=== PATIENT | male | born 1965 | race Caucasian/White ===

== ENCOUNTER 2020-10-07 20:41 | Emergency (ER) | payer OTHER ==
[2020-10-07 20:57] VITALS: BP 130/81; PULSE 86; RESP 18
[2020-10-07 20:58] VITALS: TEMP 100.2
[2020-10-07] MEDS ORDERED: ACETAMINOPHEN TAB 500 MG TAB PO STA (21:06)
[2020-10-07] MEDS ORDERED: SODIUM CHLORIDE 0.9% 1,000 ML IV STA (21:06)
--- NOTE | 2020-10-07 21:13 | ED ---
General Adult HPI - General Chief complaint: Upper Respiratory Infection Stated complaint: Fever, Covid exposure Time Seen by Provider: 10/07/20 20:50 Source: patient Mode of arrival: EMS Limitations: no limitations - History of Present Illness Initial comments: 55-year-old male without any significant past medical history presents to the emergency room for a chief complaint of not feeling well. Patient reports that he was exposed to his who has Covid. He reports that for the past 9 days he has had cough, fevers on and off, weakness, body aches. He has not been eating or drinking. He reports he can does not feel better. He denies shortne ss of breath or chest pain.Patient has no other complaints at this time including shortness of breath, chest pain, abdominal pain, nausea or vomiting, headache, or visual changes. - Related Data Home Medications Medication Instructions Recorded Confirmed Ascorbic Acid [Vitamin C] 500 mg PO DAILY 10/07/20 10/07/20 Cholecalciferol [Vitamin D3 (25 25 mcg PO DAILY 10/07/20 10/07/20 Mcg = 1000 Iu)] Vitamin A [Vitamin A (8,000 Units 2,400 mcg PO DAILY 10/07/20 10/07/20 = 2,400 MCG)] Zinc 50 mg PO DAILY 10/07/20 10/07/20 Allergies Allergy/AdvReac Type Severity Reaction Status Date / Time ibuprofen [From Motrin] AdvReac Unknown Verified 10/07/20 21:08 Review of Systems ROS Statement: Those systems with pertinent positive or pertinent negative responses have been documented in the HPI. ROS Other: All systems not noted in ROS Statement are negative. Past Medical History Past Medical History: No Reported History History of Any Multi-Drug Resistant Organisms: None Reported Additional Past Surgical History / Comment(s): knee surgery Past Psychological History: No Psychological Hx Reported Smoking Status: Never smoker Past Alcohol Use History: Occasional Past Drug Use History: None Reported General Exam Limitations: no limitations General appearance: alert, in no apparent distress Head exam: Present: atraumatic, normocephalic, normal inspection Eye exam: Present: normal appearance, PERRL, EOMI. Absent: scleral icterus, conjunctival injection, periorbital swelling ENT exam: Present: normal exam, mucous membranes moist Neck exam: Present: normal inspection, full ROM. Absent: tenderness, meningismus, lymphadenopathy Respiratory exam: Present: normal lung sounds bilaterally. Absent: respiratory distress, wheezes, rales, rhonchi, stridor Cardiovascular Exam: Present: regular rate, normal rhythm, normal heart sounds. Absent: systolic murmur, diastolic murmur, rubs, gallop, clicks GI/Abdominal exam: Present: soft, normal bowel sounds. Absent: distended, tenderness, guarding, rebound, rigid Course Vital Signs 10/07/20 10/07/20 20:45 20:57 Temperature 100.2 F H Pulse Rate 86 Respiratory 18 Rate Blood Pressure 130/81 O2 Sat by Pulse 95 Oximetry Medical Decision Making - Medical Decision Making Vitals are stable. CBC CMP unremarkable. Chest x-ray shows no acute process. At this time patient does qualify for antibody infusion which was discussed with him. He is agreeable. He will return to the emergency room for any worsening symptoms. - Lab Data Result diagrams: 10/07/20 21:12 10/07/20 21:12 Lab Results 10/07/20 10/07/20 10/07/20 Range/Units 21:12 21:12 21:12 WBC 4.7 (3.8-10.6) k/uL RBC 5.31 (4.30-5.90) m/uL Hgb 16.8 (13.0-17.5) gm/dL Hct 48.2 (39.0-53.0) % MCV 90.8 (80.0-100.0) fL MCH 31.7 (25.0-35.0) pg MCHC 34.9 (31.0-37.0) g/dL RDW 12.2 (11.5-15.5) % Plt Count 272 (150-450) k/uL MPV 7.1 Neutrophils % 76 % Lymphocytes % 15 % Monocytes % 7 % Eosinophils % 0 % Basophils % 0 % Neutrophils # 3.5 (1.3-7.7) k/uL Lymphocytes # 0.7 L (1.0-4.8) k/uL Monocytes # 0.3 (0-1.0) k/uL Eosinophils # 0.0 (0-0.7) k/uL Basophils # 0.0 (0-0.2) k/uL Sodium 131 L (137-145) mmol/L Potassium 3.8 (3.5-5.1) mmol/L Chloride 98 (98-107) mmol/L Carbon Dioxide 23 (22-30) mmol/L Anion Gap 10 mmol/L BUN 15 (9-20) mg/dL Creatinine 0.70 (0.66-1.25) mg/dL Est GFR (CKD-EPI)AfAm >90 (>60 ml/min/1.73 sqM) Est GFR (CKD-EPI)NonAf >90 (>60 ml/min/1.73 sqM) Glucose 129 H (74-99) mg/dL Calcium 8.8 (8.4-10.2) mg/dL Total Bilirubin 0.6 (0.2-1.3) mg/dL AST 53 (17-59) U/L ALT 52 H (4-49) U/L Alkaline Phosphatase 89 (38-126) U/L Total Protein 6.7 (6.3-8.2) g/dL Albumin 3.7 (3.5-5.0) g/dL Coronavirus (PCR) Detected A (Not Detectd) Disposition Clinical Impression: COVID-19 Disposition: HOME SELF-CARE Condition: Good Instructions (If sedation given, give patient instructions): Coronavirus Disease 2019 (COVID-19) Additional Instructions: Please follow up with primary care in 1-2 days. Return to the ER for any worsening symptoms. Is patient prescribed a controlled substance at d/c from ED?: No Referrals: Dario Ho DO [Primary Care Provider] - 1-2 days Time of Disposition: 22:21
[2020-10-07 21:19] LABS: Basophils % (A) 0 %; Eosinophils % (A) 0 %; HCT 48.2 % (39.0-53.0); HGB 16.8 gm/dL (13.0-17.5); Lymphocytes # (A) 0.7 k/uL (1.0-4.8); Lymphocytes % (A) 15 %; MCH 31.7 pg (25.0-35.0); MCHC 34.9 g/dL (31.0-37.0); MCV 90.8 fL (80.0-100.0); Mean Platelet Volume 7.1; Monocytes # (A) 0.3 k/uL (0-1.0); Monocytes % (A) 7 %; Neutrophils # (A) 3.5 k/uL (1.3-7.7); Neutrophils % (A) 76 %; Platelet Count 272 k/uL (150-450); RBC 5.31 m/uL (4.30-5.90); RDW 12.2 % (11.5-15.5); WBC 4.7 k/uL (3.8-10.6)
[2020-10-07 21:30] LABS: ALT 52 U/L (4-49); AST 53 U/L (17-59); African American GFR (CKD) >90 (>60 ml/min/1.73 sqM); Albumin 3.7 g/dL (3.5-5.0); Alkaline Phosphatase 89 U/L (38-126); Anion Gap 10 mmol/L; Blood Urea Nitrogen 15 mg/dL (9-20); Calcium 8.8 mg/dL (8.4-10.2); Carbon Dioxide 23 mmol/L (22-30); Chloride 98 mmol/L (98-107); Glucose 129 mg/dL (74-99); Non-African American GFR(CKD) >90 (>60 ml/min/1.73 sqM); Potassium 3.8 mmol/L (3.5-5.1); Sodium 131 mmol/L (137-145); Total Bilirubin 0.6 mg/dL (0.2-1.3); Total Protein 6.7 g/dL (6.3-8.2)
--- NOTE | 2020-10-07 21:40 | XR ---
EXAMINATION TYPE: XR chest 1V portable DATE OF EXAM: 10/07/2020 COMPARISON: NONE HISTORY: Cough and congestion TECHNIQUE: Single view FINDINGS: There is no heart failure nor confluent pneumonic infiltrate. Costophrenic angles are clear . There are no hilar masses. The bony thorax is intact IMPRESSION: No active cardiopulmonary disease. Normal heart.
== END 2020-10-08 02:04 | disposition home or self-care (01) ==
LOC: EC 20:41
DX: U07.1 COVID-19 (principal); Z88.6 Allergy status to analgesic agent
CPT/HCPCS: 36415; 71045; 80053; 85025; 87635; 99285

== ENCOUNTER 2020-10-12 08:10 | Inpatient (IN) | payer OTHER ==
--- NOTE | 2020-10-12 08:39 | ED ---
General Adult HPI - General Chief complaint: Shortness of Breath Stated complaint: SOB/COVID+ Time Seen by Provider: 10/12/20 08:15 Source: patient, RN notes reviewed, old records reviewed Mode of arrival: wheelchair Limitations: no limitations - History of Present Illness Initial comments: This is a 55-year-old male was previously diagnosed with COVID. Patient states he was given antibiotics and take 10 but he continues to be short of breath and fatigued. Patient states anytime he exerts himself at all he is extremely short of breath. Patient denies taking any medications for any reason. Patient denies high blood pressure diabetes COPD or smoking. Patient denies any previous cardiac problems. Patient states he hasn't had a fever for about 4 days. Patient denies any chest pain abdominal pain or pain anywhere. Patient denies any swelling to the legs or calf tenderness. - Related Data Home Medications Medication Instructions Recorded Confirmed No Known Home Medications 10/12/20 10/12/20 Allergies Allergy/AdvReac Type Severity Reaction Status Date / Time ibuprofen [From Motrin] AdvReac Unknown Verified 10/12/20 09:33 Review of Systems ROS Statement: Those systems with pertinent positive or pertinent negative responses have been documented in the HPI. ROS Other: All systems not noted in ROS Statement are negative. Past Medical History Past Medical History: No Reported History History of Any Multi-Drug Resistant Organisms: None Reported Past Surgical History: Orthopedic Surgery Additional Past Surgical History / Comment(s): knee surgery Past Psychological History: No Psychological Hx Reported Smoking Status: Never smoker Past Alcohol Use History: Occasional Past Drug Use History: None Reported General Exam - General Exam Comments Initial Comments: GENERAL: Patient is well-developed and well-nourished. Patient is nontoxic and well- hydrated and is in mild distress. ENT: Neck is soft and supple. No significant lymphadenopathy is noted. Oropharynx is clear. Moist mucous membranes. Neck has full range of motion without eliciting any pain. EYES: The sclera were anicteric and conjunctiva were pink and moist. Extraocular movements were intact and pupils were equal round and reactive to light. Eyelids were unremarkable. PULMONARY: Unlabored respirations. Good breath sounds bilaterally. Crackles bilaterally CARDIOVASCULAR: There is a regular rate and rhythm without any murmurs gallops or rubs. ABDOMEN: Soft and nontender with normal bowel sounds. No palpable organomegaly was noted. There is no palpable pulsatile mass. SKIN: Skin is clear with no lesions or rashes and otherwise unremarkable. NEUROLOGIC: Patient is alert and oriented x3. Cranial nerves II through XII are grossly intact. Motor and sensory are also intact. Normal speech, volume and content. Symmetrical smile. MUSCULOSKELETAL: Normal extremities with adequate strength and full range of motion. No lower extremity swelling or edema. No calf tenderness. LYMPHATICS: No significant lymphadenopathy is noted PSYCHIATRIC: Normal psychiatric evaluation. Limitations: no limitations Course Vital Signs 10/12/20 10/12/20 10/12/20 08:13 08:45 09:41 Temperature 98.5 F Pulse Rate 76 63 Respiratory 24 18 18 Rate Blood Pressure 103/66 112/73 O2 Sat by Pulse 89 L 95 Oximetry Medical Decision Making - Medical Decision Making EKG shows normal sinus rhythm at 79 bpm PA interval is 138 QRS is 86 QT interval 376 QTC is 431. Patient's EKG shows T-wave inversions in inferior leads II, III, and F aVF and slight ST segment depression in V5 and V6. X-ray shows pneumonia bilaterally. Patient remained at 94% on a couple liters in the room however when he took the oxygen off he would fall down to 89%. I spoke with several physicians Dr. Shah and he agreed to admit the patient admitted the patient wrote admitting orders. - Lab Data Result diagrams: 10/12/20 08:42 10/12/20 08:42 Lab Results 10/12/20 10/12/20 10/12/20 Range/Units 08:42 08:42 08:42 WBC 8.8 (3.8-10.6) k/uL RBC 5.13 (4.30-5.90) m/uL Hgb 16.1 (13.0-17.5) gm/dL Hct 47.0 (39.0-53.0) % MCV 91.6 (80.0-100.0) fL MCH 31.4 (25.0-35.0) pg MCHC 34.2 (31.0-37.0) g/dL RDW 12.3 (11.5-15.5) % Plt Count 484 H (150-450) k/uL MPV 7.3 Neutrophils % 80 % Lymphocytes % 13 % Monocytes % 6 % Eosinophils % 1 % Basophils % 0 % Neutrophils # 7.0 (1.3-7.7) k/uL Lymphocytes # 1.1 (1.0-4.8) k/uL Monocytes # 0.5 (0-1.0) k/uL Eosinophils # 0.0 (0-0.7) k/uL Basophils # 0.0 (0-0.2) k/uL PT 10.8 (9.0-12.0) sec INR 1.0 (<1.2) APTT 22.2 (22.0-30.0) sec D-Dimer 0.55 (<0.60) mg/L FEU Sodium 134 L (137-145) mmol/L Potassium 4.3 (3.5-5.1) mmol/L Chloride 104 (98-107) mmol/L Carbon Dioxide 19 L (22-30) mmol/L Anion Gap 11 mmol/L BUN 15 (9-20) mg/dL Creatinine 0.66 (0.66-1.25) mg/dL Est GFR (CKD-EPI)AfAm >90 (>60 ml/min/1.73 sqM) Est GFR (CKD-EPI)NonAf >90 (>60 ml/min/1.73 sqM) Glucose 117 H (74-99) mg/dL Plasma Lactic Acid Ankit (0.7-2.0) mmol/L Calcium 8.9 (8.4-10.2) mg/dL Magnesium 1.9 (1.6-2.3) mg/dL Total Bilirubin 1.2 (0.2-1.3) mg/dL AST 39 (17-59) U/L ALT 65 H (4-49) U/L Alkaline Phosphatase 89 (38-126) U/L Troponin I (0.000-0.034) ng/mL Total Protein 6.7 (6.3-8.2) g/dL Albumin 3.5 (3.5-5.0) g/dL 10/12/20 10/12/20 Range/Units 08:42 09:53 WBC (3.8-10.6) k/uL RBC (4.30-5.90) m/uL Hgb (13.0-17.5) gm/dL Hct (39.0-53.0) % MCV (80.0-100.0) fL MCH (25.0-35.0) pg MCHC (31.0-37.0) g/dL RDW (11.5-15.5) % Plt Count (150-450) k/uL MPV Neutrophils % % Lymphocytes % % Monocytes % % Eosinophils % % Basophils % % Neutrophils # (1.3-7.7) k/uL Lymphocytes # (1.0-4.8) k/uL Monocytes # (0-1.0) k/uL Eosinophils # (0-0.7) k/uL Basophils # (0-0.2) k/uL PT (9.0-12.0) sec INR (<1.2) APTT (22.0-30.0) sec D-Dimer (<0.60) mg/L FEU Sodium (137-145) mmol/L Potassium (3.5-5.1) mmol/L Chloride (98-107) mmol/L Carbon Dioxide (22-30) mmol/L Anion Gap mmol/L BUN (9-20) mg/dL Creatinine (0.66-1.25) mg/dL Est GFR (CKD-EPI)AfAm (>60 ml/min/1.73 sqM) Est GFR (CKD-EPI)NonAf (>60 ml/min/1.73 sqM) Glucose (74-99) mg/dL Plasma Lactic Acid Ankit 1.2 (0.7-2.0) mmol/L Calcium (8.4-10.2) mg/dL Magnesium (1.6-2.3) mg/dL Total Bilirubin (0.2-1.3) mg/dL AST (17-59) U/L ALT (4-49) U/L Alkaline Phosphatase (38-126) U/L Troponin I <0.012 (0.000-0.034) ng/mL Total Protein (6.3-8.2) g/dL Albumin (3.5-5.0) g/dL Disposition Clinical Impression: Pneumonia due to COVID-19 virus Disposition: ADMITTED IP TO THIS HOSP Referrals: Dario Ho DO [Primary Care Provider] - 1-2 days Time of Disposition: 11:06
[2020-10-12 08:53] LABS: Basophils % (A) 0 %; Eosinophils % (A) 1 %; HGB 16.1 gm/dL (13.0-17.5); Lymphocytes # (A) 1.1 k/uL (1.0-4.8); Lymphocytes % (A) 13 %; MCH 31.4 pg (25.0-35.0); MCHC 34.2 g/dL (31.0-37.0); MCV 91.6 fL (80.0-100.0); Mean Platelet Volume 7.3; Monocytes # (A) 0.5 k/uL (0-1.0); Monocytes % (A) 6 %; Neutrophils % (A) 80 %; Platelet Count 484 k/uL (150-450); RBC 5.13 m/uL (4.30-5.90); RDW 12.3 % (11.5-15.5); WBC 8.8 k/uL (3.8-10.6)
[2020-10-12 09:03] LABS: ALT 65 U/L (4-49); African American GFR (CKD) >90 (>60 ml/min/1.73 sqM); Albumin 3.5 g/dL (3.5-5.0); Anion Gap 11 mmol/L; Blood Urea Nitrogen 15 mg/dL (9-20); Calcium 8.9 mg/dL (8.4-10.2); Carbon Dioxide 19 mmol/L (22-30); Chloride 104 mmol/L (98-107); Glucose 117 mg/dL (74-99); Non-African American GFR(CKD) >90 (>60 ml/min/1.73 sqM); Sodium 134 mmol/L (137-145); Total Bilirubin 1.2 mg/dL (0.2-1.3); Total Protein 6.7 g/dL (6.3-8.2)
[2020-10-12 09:06] LABS: Magnesium 1.9 mg/dL (1.6-2.3); Potassium 4.3 mmol/L (3.5-5.1)
[2020-10-12 09:07] LABS: AST 39 U/L (17-59); Alkaline Phosphatase 89 U/L (38-126); Partial Thromboplastin Time 22.2 sec (22.0-30.0); Prothrombin Time 10.8 sec (9.0-12.0)
--- NOTE | 2020-10-12 09:39 | XR ---
EXAMINATION TYPE: XR chest 1V portable DATE OF EXAM: 10/12/2020 COMPARISON: 10/07/2020 HISTORY: Cough TECHNIQUE: Single frontal view of the chest is obtained. FINDINGS: There are bilateral perihilar interstitial infiltrates with peripheral increased density w ithin the right upper lobe and left upper and lower lobe. Correlate for pneumonia. Heart size stable. No pleural effusion or pneumothorax. IMPRESSION: 1. Interstitial pneumonitis with peripheral infiltrates greater on the left correlate for pneumonia.
[2020-10-12] MEDS ORDERED: DEXAMETHASONE SOD PHOSPHATE 10 MG/ML 1 ML VIAL IV STA (10:37)
--- NOTE | 2020-10-12 13:15 | P.CNPUL ---
History of Present Illness Consult date: 10/12/20 Reason for consult: dyspnea, pneumonia History of present illness: -55 year-old male patient, unvaccinated, developed symptoms of COVID-19 approx imately 2 weeks ago. He was having fevers and fatigue and body aches. He has also some limited shortness of breath. He was monitoring his pulse oximeter at home. He was officially diagnosed having COVID-19 infection on 10/06/2020. 10 days into his symptoms, he received monoclonal antibodies. This morning, he noticed further drop in the pulse oximeter down to 8788% and for that reason he end up coming into the hospital her chest x-ray was done and showed that the pulmonary infiltrates consistent with COVID-19 related pneumonia. He is currently on 2 L about 2 by nasal cannula. D-dimer is nonelevated. The rest of the intermittent markers have not been checked. Note that the patient has taken Medrol Dosepak on outpatient basis and he has completed. No comorbidities. Hemodynamically stable. No altered mentation. No GI symptoms. No cardiomyopathy. Review of Systems Constitutional: Reports fatigue, Reports fever, Reports weakness Eyes: denies as per HPI, denies blurred vision, denies bulging eye, denies decreased vision, denies diplopia, denies discharge, denies dry eye, denies irritation, denies itching, denies pain, denies photophobia, denies loss of peripheral vision, denies loss of vision, denies tunnel vision/blind spots Ears: deny: decreased hearing, ear discharge, earache, tinnitus Ears, nose, mouth and throat: Reports as per HPI Breasts: absent: as per HPI, gynecomastia Cardiovascular: Reports dyspnea on exertion Respiratory: Reports cough, Reports dyspnea Gastrointestinal: Reports as per HPI Genitourinary: Reports as per HPI Musculoskeletal: Reports as per HPI Musculoskeletal: absent: ankle pain, ankle stiffness, ankle swelling Integumentary: Reports as per HPI Neurological: Reports as per HPI Psychiatric: Reports as per HPI Hematologic/Lymphatic: Reports as per HPI Allergic/Immunologic: Reports as per HPI Past Medical History Past Medical History: No Reported History History of Any Multi-Drug Resistant Organisms: None Reported Past Surgical History: Orthopedic Surgery Additional Past Surgical History / Comment(s): knee surgery Past Anesthesia/Blood Transfusion Reactions: No Reported Reaction Past Psychological History: No Psychological Hx Reported Smoking Status: Never smoker Past Alcohol Use History: Occasional Past Drug Use History: None Reported Medications and Allergies Home Medications Medication Instructions Recorded Confirmed Type No Known Home Medications 10/12/20 10/12/20 History Allergies Allergy/AdvReac Type Severity Reaction Status Date / Time ibuprofen [From Motrin] AdvReac Unknown Verified 10/12/20 09:33 Physical Exam Vitals: Vital Signs Temp Pulse Pulse Resp BP BP Pulse Ox 10/12/20 12:08 98.6 F 68 18 116/65 92 L 10/12/20 12:00 98.6 F 68 18 116/65 92 L 10/12/20 11:43 98.8 F 72 20 120/73 95 10/12/20 09:41 63 18 112/73 95 10/12/20 08:45 18 10/12/20 08:13 98.5 F 76 24 103/66 89 L Intake and Output 10/11/20 10/12/20 10/12/20 22:59 06:59 14:59 Other: Weight 90 kg The patient appeared well nourished and normally developed. Vital signs as documented. Head exam is unremarkable. No scleral icterus or corneal arcus noted. Neck is without jugular venous distension, thyromegaly, or carotid bruits. Carotid upstrokes are brisk bilaterally. Lungs are showing crackles lung bases bilaterally. Cardiac exam reveals the PMI to be normally sized and situated. Rhythm is regular. First and second heart sounds normal. No murmurs, rubs or gallops. Abdominal exam reveals normal bowel sounds, no masses, no organomegaly and no aortic enlargement. Extremities are nonedematous and both femoral and pedal pulses are normal.Examination of the skin revealed no evidence of significant rashes, suspicious appearing nevi or other concerning lesions.Neurologically, the patient is awake and alert and the patient does not have any focal neurological deficit. Cranial nerves are essentially intact. Results - Laboratory Findings CBC and BMP: 10/12/20 08:42 10/12/20 08:42 PT/INR, D-dimer PT 10.8 sec (9.0-12.0) 10/12/20 08:42 INR 1.0 (<1.2) 10/12/20 08:42 D-Dimer 0.55 mg/L FEU (<0.60) 08/01/21 08:42 Abnormal lab findings: Abnormal Labs 10/12/20 10/12/20 08:42 08:42 Plt Count 484 H Sodium 134 L Carbon Dioxide 19 L Glucose 117 H ALT 65 H - Diagnostic Findings Chest x-ray: image reviewed Assessment and Plan Plan: 1 COVID-19 related pneumonia, symptoms started approximately 2 weeks ago, treated with Medrol Dosepak and received monoclonal antibodies 10 days into his symptoms. Presenting currently with worsening shortness of breath. 2 acute hypoxic respiratory failure secondary to above Plan Supplemental oxygen at 2 L per minute nasal cannula and titrated oxygen flow to maintain a saturation above 90% Provide the patient Decadron 6 mg by mouth daily Lovenox 40 mg subcu for DVT prophylaxis, d-dimer is at low Vitamin C, vitamin D supplements incentive spirometer Continue with supportive care
[2020-10-12] MEDS: ZINC SULFATE 220 MG CAP PO SCH (13:19)
[2020-10-12] MEDS: ENOXAPARIN 40 MG/0.4 ML SYRINGE SQ SCH (13:19)
[2020-10-12] MEDS: ASCORBIC ACID 500 MG TAB PO SCH (13:19)
[2020-10-12] MEDS ORDERED: ACETAMINOPHEN TAB 325 MG TAB PO PRN (14:25)
[2020-10-12] MEDS ORDERED: NALOXONE 0.4 MG/ML 1 ML VIAL IV PRN (14:25)
--- NOTE | 2020-10-12 15:53 | P.HPIM ---
History of Present Illness H&P Date: 10/12/20 Chief Complaint: Dyspnea 55 year old man with no significant past medical history, who was diagnosed with COVID with unvaccinated status, presented for increasing dyspnea on exertion, and chills. Patient was dx with COVID 15 days ago. Rec'd monoclonal antibody 10 days ago. Has gone through 1.5 sets of medrol dose packs. Has been taking daily Vit C/D, Zn. He reported that he finally defervesced 3-4 days ago and was hopeful that he was turning the corner, however, he noted becoming increasingly dyspneic with minimal activity. He has a finger pulse ox at home and noted readings in the mid 80s to low 90s on room air. He has been trying inhalers but to no relief. He presented to the ER given worsening medical condition. Denies chest pain, palps, abd pain, dysuria, dyschezia, numbness/tingling of extremities. He reports chills, fevers, nausea, vomiting, diarrhea. In the ER, noted to have 2L NC O2 requirement. CXR with diffuse interstitial pneumonia but no lobar lung consolidation. He will be admitted for further management of COVID Pneumonia with acute hypoxemic respiratory failure. Review of Systems All Systems reviewed and pertinent positives and negatives noted in HPI, all other symptoms are negative Past Medical History Past Medical History: No Reported History History of Any Multi-Drug Resistant Organisms: None Reported Past Surgical History: Orthopedic Surgery Additional Past Surgical History / Comment(s): knee surgery Past Anesthesia/Blood Transfusion Reactions: No Reported Reaction Past Psychological History: No Psychological Hx Reported Smoking Status: Never smoker Past Alcohol Use History: Occasional Past Drug Use History: None Reported Medications and Allergies Home Medications Medication Instructions Recorded Confirmed Type No Known Home Medications 10/12/20 10/12/20 History Allergies Allergy/AdvReac Type Severity Reaction Status Date / Time ibuprofen [From Motrin] AdvReac Unknown Verified 10/12/20 09:33 Physical Exam Osteopathic Statement: *. No significant issues noted on an osteopathic structural exam other than those noted in the History and Physical/Consult. Vitals: Vital Signs Temp Pulse Pulse Resp BP BP Pulse Ox 10/12/20 13:11 68 18 10/12/20 12:08 98.6 F 68 18 116/65 92 L 10/12/20 12:00 98.6 F 68 18 116/65 92 L 10/12/20 11:43 98.8 F 72 20 120/73 95 10/12/20 09:41 63 18 112/73 95 10/12/20 08:45 18 10/12/20 08:13 98.5 F 76 24 103/66 89 L Intake and Output 10/12/20 10/12/20 10/12/20 06:59 14:59 22:59 Other: Voiding Method Toilet Weight 90 kg Gen: awake, alert HEENT: normocephalic, atraumatic, good hearing acuity, moist mucous membranes Resp: diffuse crackles, no wheezing, speaks in mostly full sentences but appears winded during interview CVS: good distal perfusion x 4, tachycardic, regular rhythm, no murmurs GI: soft, NTTP, ND : no SPT, no CVAT, marin catheter not present MSK: no pitting edema, no clubbing Neuro: non-focal, moving all extremities Psych: cooperative, euthymic mood Results CBC & Chem 7: 10/12/20 08:42 10/12/20 08:42 Labs: Abnormal Lab Results - Last 24 Hours (Table) 10/12/20 10/12/20 Range/Units 08:42 08:42 Plt Count 484 H (150-450) k/uL Sodium 134 L (137-145) mmol/L Carbon Dioxide 19 L (22-30) mmol/L Glucose 117 H (74-99) mg/dL ALT 65 H (4-49) U/L Thrombosis Risk Factor Assmnt - Choose All That Apply Any of the Below Risk Factors Present?: Yes Each Factor Represents 1 point: Age 41-60 years Other Risk Factors: No Other congenital or acquired thrombophilia - If yes, enter type in comment: No Thrombosis Risk Factor Assessment Total Risk Factor Score: 1 Thrombosis Risk Factor Assessment Level: Low Risk Assessment and Plan Assessment: Acute hypoxemic respiratory failure Covid 19 pneumonia -Admit to inpatient, telemetry, contact/droplet precautions -Outside of the window for remdesivir, already rec'd monoclonal Ab - Decadron 6 mg by mouth daily -Vitamin C/D, zinc daily -Supportive care -Oxygen when necessary -Nebulizers when necessary -Daily inflammatory labs -Pulmonary medicine following, appreciate recommendations Full Code DVT PPx with enoxaparin 40mg SQ
[2020-10-13 08:14] LABS: African American GFR (CKD) >90 (>60 ml/min/1.73 sqM); Anion Gap 13 mmol/L; Blood Urea Nitrogen 18 mg/dL (9-20); C Reactive Protein 8.3 mg/dL (<1.0); Carbon Dioxide 23 mmol/L (22-30); Chloride 103 mmol/L (98-107); Glucose 136 mg/dL (74-99); LDH 634 U/L (313-618); Magnesium 2.4 mg/dL (1.6-2.3); Non-African American GFR(CKD) >90 (>60 ml/min/1.73 sqM); Potassium 4.8 mmol/L (3.5-5.1); Sodium 139 mmol/L (137-145)
[2020-10-13 08:45] LABS: Basophils % (A) 0 %; Eosinophils % (A) 0 %; HCT 49.2 % (39.0-53.0); HGB 16.8 gm/dL (13.0-17.5); Lymphocytes # (A) 1.7 k/uL (1.0-4.8); Lymphocytes % (A) 15 %; MCH 32.1 pg (25.0-35.0); MCHC 34.2 g/dL (31.0-37.0); Mean Platelet Volume 9.1; Monocytes # (A) 0.8 k/uL (0-1.0); Monocytes % (A) 7 %; Neutrophils # (A) 8.7 k/uL (1.3-7.7); Neutrophils % (A) 76 %; Platelet Count 429 k/uL (150-450); RBC 5.24 m/uL (4.30-5.90); RDW 12.4 % (11.5-15.5); WBC 11.6 k/uL (3.8-10.6)
[2020-10-13] MEDS: ASCORBIC ACID 500 MG TAB PO SCH (09:28)
[2020-10-13] MEDS: ZINC SULFATE 220 MG CAP PO SCH (09:28)
[2020-10-13] MEDS: dexAMETHasone 2 MG TAB PO SCH (09:28)
[2020-10-13] MEDS: ENOXAPARIN 40 MG/0.4 ML SYRINGE SQ SCH (09:28)
[2020-10-13 12:23] LABS: Ferritin 2125.6 ng/mL (22.0-322.0)
--- NOTE | 2020-10-13 13:22 | P.PN ---
Subjective Progress Note Date: 10/13/20 No new complaints. Pt is stable, still needs 2L O2. Objective - Vital Signs Vital signs: Vital Signs Temp 97.5 F L 10/13/20 08:00 Pulse 53 L 10/13/20 08:00 Resp 18 10/13/20 08:00 BP 124/69 10/13/20 08:00 Pulse Ox 97 10/13/20 08:30 Intake & Output 10/12/20 10/13/20 10/13/20 18:59 06:59 18:59 Intake Total 780 540 540 Balance 780 540 540 Weight 90 kg 83 kg Intake: Oral 780 540 540 Other: Voiding Method Toilet Toilet Toilet # Voids 2 2 2 - Exam Gen: awake, alert HEENT: normocephalic, atraumatic, good hearing acuity, moist mucous membranes Resp: diffuse crackles, no wheezing, speaks in mostly full sentences but appears winded during interview CVS: good distal perfusion x 4, tachycardic, regular rhythm, no murmurs GI: soft, NTTP, ND : no SPT, no CVAT, marin catheter not present MSK: no pitting edema, no clubbing Neuro: non-focal, moving all extremities Psych: cooperative, euthymic mood - Labs CBC & Chem 7: 10/13/20 07:26 10/13/20 07:26 Labs: Abnormal Lab Results - Last 24 Hours (Table) 10/13/20 10/13/20 Range/Units 07:26 07:26 WBC 11.6 H (3.8-10.6) k/uL Neutrophils # 8.7 H (1.3-7.7) k/uL Glucose 136 H (74-99) mg/dL Magnesium 2.4 H (1.6-2.3) mg/dL Ferritin 2125.6 H (22.0-322.0) ng/mL Lactate Dehydrogenase 634 H (313-618) U/L C-Reactive Protein 8.3 H (<1.0) mg/dL Microbiology - Last 24 Hours (Table) 10/12/20 09:00 Blood Culture - Preliminary Blood No Growth after 24 hours 10/12/20 09:07 Blood Culture - Preliminary Blood No Growth after 24 hours Assessment and Plan Assessment: Acute hypoxemic respiratory failure Covid 19 pneumonia -Admit to inpatient, telemetry, contact/droplet precautions -Outside of the window for remdesivir, already rec'd monoclonal Ab - Decadron 6 mg by mouth daily -Vitamin C/D, zinc daily -Supportive care -Oxygen when necessary -Nebulizers when necessary -Daily inflammatory labs -Pulmonary medicine following, appreciate recommendations Full Code DVT PPx with enoxaparin 40mg SQ
--- NOTE | 2020-10-13 13:51 | P.PN ---
Subjective Progress Note Date: 10/13/20 Principal diagnosis: Acute hypoxic respiratory failure secondary to COVID-19 pneumonia 55 year-old male patient, unvaccinated, developed symptoms of COVID-19 approximately 2 weeks ago. He was having fevers and fatigue and body aches. He has also some limited shortness of breath. He was monitoring his pulse oximeter at home. He was officially diagnosed having COVID-19 infection on 10/06/2020. 10 days into his symptoms, he received monoclonal antibodies. This morning, he noticed further drop in the pulse oximeter down to 8788% and for that reason he end up coming into the hospital her chest x-ray was done and showed that the pulmonary infiltrates consistent with COVID-19 related pneumonia. He is currently on 2 L about 2 by nasal cannula. D-dimer is nonelevated. The rest of the intermittent markers have not been checked. Note that the patient has taken Medrol Dosepak on outpatient basis and he has completed. No comorbidities. Hemodynamically stable. No altered mentation. No GI symptoms. No cardiomyopathy. Reevaluated today on 10/13/2020, patient remains on 2 L nasal cannula. At times he is on room air, and he does not seem to be short of breath at rest, but he does have dyspnea on exertion or upon any activity. WBC count today is 11.6 hemoglobin is 16.8. Electrodes are normal renal profile is normal. LDH is 634. C-reactive protein is 8.3 pro calcitonin 0.07 Objective - Vital Signs Vital signs: Vital Signs Temp 97.5 F L 10/13/20 08:00 Pulse 53 L 10/13/20 08:00 Resp 18 10/13/20 08:00 BP 124/69 10/13/20 08:00 Pulse Ox 97 10/13/20 08:30 Intake & Output 10/12/20 10/13/20 10/13/20 18:59 06:59 18:59 Intake Total 780 540 540 Balance 780 540 540 Weight 90 kg 83 kg Intake: Oral 780 540 540 Other: Voiding Method Toilet Toilet Toilet # Voids 2 2 2 - Exam Physical Exam: Revealed a 55-year-old white male in no distress. Head: Atraumatic normocephalic. HEENT:[Neck is supple.] [No neck masses.] [No thyromegaly.] [No JVD.] Chest: [The mechanical chest expansion fine crackles at the bases no rhonchi and no wheezes] Cardiac Exam: [Normal S1 and S2, no S3 gallop, no murmur.] Abdomen: [Soft, nontender, no megaly, no rebound, no guarding, normal bowel sounds.] Extremities: [No clubbing, no edema, no cyanosis.] Neurological Exam: [No focal neurologic deficit.] Alert and oriented 3. Psychiatric: Normal mood affect and normal mental status examination. Skin: No rashes. - Labs CBC & Chem 7: 10/13/20 07:26 10/13/20 07:26 Labs: Abnormal Lab Results - Last 24 Hours (Table) 10/13/20 10/13/20 Range/Units 07:26 07:26 WBC 11.6 H (3.8-10.6) k/uL Neutrophils # 8.7 H (1.3-7.7) k/uL Glucose 136 H (74-99) mg/dL Magnesium 2.4 H (1.6-2.3) mg/dL Ferritin 2125.6 H (22.0-322.0) ng/mL Lactate Dehydrogenase 634 H (313-618) U/L C-Reactive Protein 8.3 H (<1.0) mg/dL Microbiology - Last 24 Hours (Table) 10/12/20 09:00 Blood Culture - Preliminary Blood No Growth after 24 hours 10/12/20 09:07 Blood Culture - Preliminary Blood No Growth after 24 hours Assessment and Plan Assessment: Impression: Acute hypoxic respiratory failure secondary to acute COVID-19 pneumonia Elevated inflammatory markers secondary to acute COVID-19 pneumonia and infection. Recommendation: Titrate oxygen, maintained O2 saturation above 90%. Continue Decadron. Continue Lovenox. Continue vitamin supplements. Continue incentive spirometry. Consider discharge planning in the next 24 hours. We'll continue to follow Time with Patient: Less than 30
[2020-10-14 00:18] VITALS: RESP 18
[2020-10-14] MEDS: dexAMETHasone 2 MG TAB PO SCH (09:27)
[2020-10-14] MEDS: ENOXAPARIN 40 MG/0.4 ML SYRINGE SQ SCH (09:27)
[2020-10-14] MEDS: ZINC SULFATE 220 MG CAP PO SCH (09:27)
[2020-10-14] MEDS: ASCORBIC ACID 500 MG TAB PO SCH (09:27)
[2020-10-14 10:11] VITALS: TEMP 97.8
--- NOTE | 2020-10-14 11:05 | P.PN ---
Subjective Progress Note Date: 10/14/20 Principal diagnosis: Acute hypoxic respiratory failure secondary to COVID-19 pneumonia 55 year-old male patient, unvaccinated, developed symptoms of COVID-19 approximately 2 weeks ago. He was having fevers and fatigue and body aches. He has also some limited shortness of breath. He was monitoring his pulse oximeter at home. He was officially diagnosed having COVID-19 infection on 10/06/2020. 10 days into his symptoms, he received monoclonal antibodies. This morning, he noticed further drop in the pulse oximeter down to 8788% and for that reason he end up coming into the hospital her chest x-ray was done and showed that the pulmonary infiltrates consistent with COVID-19 related pneumonia. He is currently on 2 L about 2 by nasal cannula. D-dimer is nonelevated. The rest of the intermittent markers have not been checked. Note that the patient has taken Medrol Dosepak on outpatient basis and he has completed. No comorbidities. Hemodynamically stable. No altered mentation. No GI symptoms. No cardiomyopathy. Reevaluated today on 10/13/2020, patient remains on 2 L nasal cannula. At times he is on room air, and he does not seem to be short of breath at rest, but he does have dyspnea on exertion or upon any activity. WBC count today is 11.6 hemoglobin is 16.8. Electrodes are normal renal profile is normal. LDH is 634. C-reactive protein is 8.3 pro calcitonin 0.07 The patient is seen today 10/14/2020 and follow-up on the selective care unit. He is currently sitting up in bed. Awake and alert in no acute distress. No worsening shortness of breath cough or congestion. Maintaining O2 saturations in the 90s on room air. He's been afebrile. Hemodynamically stable. Blood cultures reveal no growth. He remains on Lovenox. Dexamethasone. Vitamin supplements. Objective - Vital Signs Vital signs: Vital Signs Temp 97.8 F 10/14/20 08:00 Pulse 68 10/14/20 08:00 Resp 18 10/14/20 08:00 BP 101/74 10/14/20 08:00 Pulse Ox 94 L 10/14/20 08:00 Intake & Output 10/13/20 10/14/20 10/14/20 18:59 06:59 18:59 Intake Total 540 540 240 Balance 540 540 240 Weight 82.7 kg Intake: Oral 540 540 240 Other: Voiding Method Toilet Toilet # Voids 2 1 - Exam GENERAL EXAM: Alert, active, 55-year-old gentleman, on room air, comfortable in no apparent distress. HEAD: Normocephalic. EYES: Normal reaction of pupils, equal size. NOSE: Clear with pink turbinates. THROAT: No erythema or exudates. NECK: No masses, no JVD. CHEST: No chest wall deformity. LUNGS: Equal air entry with crackles in the posterior bases. CVS: S1 and S2 normal with no audible murmur, regular rhythm. ABDOMEN: No hepatosplenomegaly, normal bowel sounds, no guarding or rigidity. SPINE: No scoliosis or deformity SKIN: No rashes CENTRAL NERVOUS SYSTEM: No focal deficits, tone is normal in all 4 extremities. EXTREMITIES: There is no peripheral edema. No clubbing, no cyanosis. Peripheral pulses are intact. - Labs CBC & Chem 7: 10/13/20 07:26 10/13/20 07:26 Labs: Abnormal Lab Results - Last 24 Hours (Table) 10/13/20 Range/Units 07:26 Ferritin 2125.6 H (22.0-322.0) ng/mL Microbiology - Last 24 Hours (Table) 10/12/20 09:00 Blood Culture - Preliminary Blood No Growth after 24 hours 10/12/20 09:07 Blood Culture - Preliminary Blood No Growth after 24 hours Assessment and Plan Assessment: 1 Acute hypoxemic respiratory failure secondary to acute COVID-19 pneumonia, recovered and on room air 2 Elevated inflammatory markers secondary to COVID-19 infection Plan: The patient was seen and evaluated by Dr. Odette Tinsley for discharge from pulmonary standpoint Continue dexamethasone for a total of 10 days Follow-up with PCP I, the cosigning physician, performed a history & physical examination of the patient. Lungs sounds crackles in the posterior bases. Maintaining good O2 saturations in the 90s on room air. I discussed the assessment and plan of care with my nurse practitioner, Rose Palencia. I attest to the above note as dictated by her.
--- NOTE | 2020-10-14 13:29 | P.DS ---
Providers Date of admission: 10/12/20 11:07 Expected date of discharge: 10/14/20 Attending physician: Jennifer Shah MD Consults: 10/12/20 11:07 Consult Physician Urgent Consulting Provider: Libby Sprague Consult Reason/Comments: COVID pneumonia Do you want consulting provider notified?: Yes Primary care physician: Dario Ho [facility] Course: Acute hypoxemic respiratory failure Covid 19 pneumonia -Admitted to inpatient, telemetry, contact/droplet precautions. Patient was outside of the window for remdesivir, and had already rec'd monoclonal Ab. He was started on Decadron 6 mg by mouth daily, Vitamin C/D, zinc daily. Pulmonary medicine followed, and offered additional guidance. Pt was discharged home after returning to room air. He was provided 8 additional days of decadron. Assessment: Gen: awake, alert HEENT: normocephalic, atraumatic, good hearing acuity, moist mucous membranes Resp: diffuse crackles, no wheezing, speaks in mostly full sentences but appears winded during interview CVS: good distal perfusion x 4, tachycardic, regular rhythm, no murmurs GI: soft, NTTP, ND : no SPT, no CVAT, marin catheter not present MSK: no pitting edema, no clubbing Neuro: non-focal, moving all extremities Psych: cooperative, euthymic mood Patient Condition at Discharge: Good Plan - Discharge Summary Discharge Rx Participant: No New Discharge Prescriptions: New Zinc Sulfate [Orazinc] 220 mg PO DAILY cap Acetaminophen Tab [Tylenol] 650 mg PO Q6HR PRN tab PRN Reason: Mild Pain Or Fever > 100.5 dexAMETHasone ORAL [Hexadrol] 6 mg PO DAILY #24 tab Ascorbic Acid [Vitamin C] 1,000 mg PO DAILY tab Discharge Medication List Acetaminophen Tab [Tylenol] 650 mg PO Q6HR PRN tab 10/14/20 [Rx] Ascorbic Acid [Vitamin C] 1,000 mg PO DAILY tab 10/14/20 [Rx] Zinc Sulfate [Orazinc] 220 mg PO DAILY cap 10/14/20 [Rx] dexAMETHasone ORAL [Hexadrol] 6 mg PO DAILY #24 tab 10/14/20 [Rx] Follow up Appointment(s)/Referral(s): Dario Ho DO [Primary Care Provider] - 1-2 days Discharge Disposition: HOME SELF-CARE
[2020-10-14 14:18] VITALS: BP 129/61; PULSE 64
== END 2020-10-14 16:31 | disposition home or self-care (01) | DRG 177 ==
LOC: EC 08:10 → 3SCARD 11:07
PROVIDERS: ADMIT Internal Medicine; ATTEND Internal Medicine
PROC: 8E0ZXY6 Isolation (ICD-10-PCS; principal; 2020-10-12)
DX: U07.1 COVID-19 (principal); J12.82 Pneumonia due to coronavirus disease 2019; J96.01 Acute respiratory failure with hypoxia; J84.9 Interstitial pulmonary disease, unspecified; Z78.9 Other specified health status
CPT/HCPCS: 36415; 71045; 80048; 80053; 82728; 83605; 83615; 83735; 84145; 84484; 85025; 85379; 85610; 85730; 86140; 87040; 93005; 96374; 99285